=== PATIENT | male | born 1990 | race Caucasian/White ===

== ENCOUNTER 2024-06-25 16:05 | Emergency (ER) | payer OTHER ==
[~2024-06-25] VITALS: Ht 200.7 cm; Wt 70.3 kg
[2024-06-25] MEDS ORDERED: LIDO700A32 TD (19:20)
[2024-06-25] MEDS ORDERED: BACL10TA2 PO (19:20)
[2024-06-25] MEDS: LIDOcaine 5% patch TP STA (19:33)
[2024-06-25 19:47] VITALS: BP 122/86; PULSE 80; RESP 16; TEMP 98.8; O2SAT 98
== END 2024-06-25 19:48 | disposition home or self-care (01) ==
LOC: ER 16:06
DX: M54.2 Cervicalgia (principal); V49.40XA Driver injured in collision with unspecified motor vehicles in traffic accident, initial encounter; Y93.89 Activity, other specified; Y92.410 Unspecified street and highway as the place of occurrence of the external cause; Y99.8 Other external cause status
CPT/HCPCS: 99283; L0172